=== PATIENT | male | born 1955 | race Two or more races ===

== ENCOUNTER → 2017-02-15 | Outpatient (CLI) | payer BC ==
--- NOTE | 2017-02-15 11:57 | RAD ---
Indication history of asthma. Cough. Shortness of breath. PA and lateral views of the chest were obtained. No prior imaging is available. The heart and pulmonary vessels appear normal. The mediastinum has a normal appearance. The lungs are clear. There is no pleural fluid or pneumothorax. Bony structures appear grossly intact. IMPRESSION: No acute or focal process is seen in the chest
== END | disposition home or self-care (01) ==
LOC: RAD 11:24
PROVIDERS: ATTEND Internal Medicine Cardiovascular Disease
DX: R06.00 Dyspnea, unspecified (principal); J45.909 Unspecified asthma, uncomplicated
CPT/HCPCS: 71020

== ENCOUNTER → 2017-02-24 | Outpatient (CLI) | payer BC ==
[~2017-02-24] MED LIST: FLUT12AE IH; PRED50TA PO; PROAIR HFA8.5 GM INH
--- NOTE | 2017-02-24 14:01 | RESP ---
DATE OF SERVICE: 02/24/2017 ATTENDING PHYSICIAN: Dr. Segal. The patient's FVC was 3.20 which is 70% of predicted. FEV1 was 1.91 which is 54% of predicted. The FEV1/FVC ratio was reduced. There was good response to bronchodilators. Lung volumes showed increased total lung capacity and increased residual volume. Diffusion capacity was normal. IMPRESSION: 1. Moderate obstructive airway disease. 2. Good response to bronchodilators. 3. Lung volumes consistent with hyperinflation and air trapping. 4. Normal diffusion capacity. LONG VARELA MD DR: HOSSEIN/gabe JOB#: [id number] / [id number] MELIDA Strickland MD
--- NOTE | 2017-02-24 14:18 | CARD ---
APPROVED REPORT EXAM: Two-dimensional and M-mode echocardiogram with Doppler and color Doppler. Other Information Quality : Average Rhythm : NSR INDICATION Dizziness and Vertigo 2D DIMENSIONS Left Atrium(2D)3.4 (1.6-4.0cm)IVSd1.1 (0.7-1.1cm) Aortic Root(2D)2.7 (2.0-3.7cm)LVDd3.9 (3.9-5.9cm) LVOT Diameter1.9 (1.8-2.4cm)PWd1.1 (0.7-1.1cm) LVDs2.2 (2.5-4.0cm)FS (%) 33.2 % SV50.0 mlLVEF(%)64.9 (>50%) Aortic Valve AoV Peak Royer.125.3cm/sAoV VTI24.4cm AO Peak GR.6.3mmHgLVOT Peak Royer.115.2cm/s LVOT VTI 19.77cmAO Mean GR.4mmHg GUY (VMAX)2.75fl6ZIT (VTI)2.41cm2 Mitral Valve MV E Bxphxahi61.3cm/sMV DECEL EKEB678up MV A Ncgrqhzi68.2cm/sMV PUU80cw E/A Ratio1.3MV A Vviiasws599vj MVA (PHT)3.30cm2 TDI E/Lateral E'5.6E/Medial E'7.1 Tricuspid Valve TR P. Lahaqbck271uv/sRAP BNSAFYAT8jpFd TR Peak Gr.02gsQmLJYT23inWp Pulmonary Vein S1 Jcbamxgd23.1cm/sD2 Rzllmxno87.2cm/s LEFT VENTRICLE The left ventricle is normal size. There is normal left ventricular wall thickness. Left ventricle sy stolic function is normal. The Ejection Fraction is 60-65%. There is normal LV segmental wall motion. The left ventricular diastolic function and filling is normal for age. There is no ventricular septa l defect visualized. RIGHT VENTRICLE The right ventricle is normal size. The right ventricular systolic function is normal. ATRIA The left atrium size is normal. The right atrium size is normal. The interatrial septum is intact wit h no evidence for an atrial septal defect or patent foramen ovale as noted on 2-D or Doppler imaging. AORTIC VALVE The aortic valve is not well visualized. Doppler and Color Flow revealed no significant aortic regurg itation. There is no significant aortic valvular stenosis. MITRAL VALVE The mitral valve is normal in structure and function. There is no mitral valve stenosis. Doppler and Color Flow revealed no mitral valve regurgitation noted. TRICUSPID VALVE The tricuspid valve is normal in structure and function. Doppler and Color Flow revealed trace tricus pid regurgitation. The PA pressure was estimated at 23 mmHg. There is no tricuspid valve stenosis. PULMONIC VALVE The pulmonic valve is not well visualized. Doppler and Color Flow revealed no pulmonic valvular regur gitation. GREAT VESSELS The aortic root is normal in size. Normal pulmonary venous flow (Doppler). The IVC is normal in size and collapses >50% with inspiration. PERICARDIAL EFFUSION There is no evidence of significant pericardial effusion. Critical Notification Critical Value: No <Conclusion> Left ventricle systolic function is normal. The Ejection Fraction is 60-65%. There is normal LV segmental wall motion.
== END | disposition home or self-care (01) ==
LOC: PF 07:40
PROVIDERS: ATTEND Internal Medicine Cardiovascular Disease
DX: R42 Dizziness and giddiness (principal)
CPT/HCPCS: 93306; 94060; 94729

== ENCOUNTER 2017-03-01 12:18 | Emergency (ER) | payer BC ==
[~2017-03-01] VITALS: Ht 175.3 cm; Wt 79.4 kg
[2017-03-01 12:35] VITALS: BP 134/88
--- NOTE | 2017-03-01 13:09 | PHYS DOC ---
Past Medical History Past Medical History: Asthma, Hypertension Alcohol Use: Occasionally Drug Use: None Adult General Chief Complaint Chief Complaint: SHORTNESS OF BREATH HPI HPI Patient is a 61 year old male who presents with his for evaluation of acute on chronic dyspnea. He states he has been short of breath intermittently for some time, but is worse in the past week. Has a dry cough that comes and goes. Symptoms are worse at night and during work. He also notes slight rhinorrhea. He states he is using pro-air and Flovent that were prescribed to him approximately 1 year ago, and he is also using DuoNeb nebulizer. States he has recently been seen by cardiology, Dr. Galdamez, who has ordered an echocardiogram and pulmonary function tests; of which he has to follow-up. 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 He denies chest pain, hemoptysis, leg pain or swelling , palpitations, diaphoresis, abdominal pain, fever or chills. Echocardiogram 02/24/17 <Conclusion> Left ventricle systolic function is normal. The Ejection Fraction is 60-65%. There is normal LV segmental wall motion. DICTATED and SIGNED BY: MELIDA GALDAMEZ MD DATE: 02/24/171417 Pulmonary function tests 02/24/17 IMPRESSION: 1. Moderate obstructive airway disease. 2. Good response to bronchodilators. 3. Lung volumes consistent with hyperinflation and air trapping. 4. Normal diffusion capacity. LONG VARELA MD DR: HOSSEIN/gabe JOB#: [id number] / [id number] Review of Systems Review of Systems Constitutional: Denies fever or chills [] Eyes: Denies change in visual acuity, redness, or eye pain [] HENT: Denies nasal congestion or sore throat [] Respiratory: Has cough and shortness of breath [] Cardiovascular: No additional information not addressed in HPI [] GI: Denies abdominal pain, nausea, vomiting, bloody stools or diarrhea [] : Denies dysuria or hematuria [] Musculoskeletal: Denies back pain or joint pain [] Integument: Denies rash or skin lesions [] Neurologic: Denies headache, focal weakness or sensory changes [] Endocrine: Denies polyuria or polydipsia [] Physical Exam Physical Exam Constitutional: Well developed, well nourished, no acute distress, non-toxic appearance. [] HENT: Normocephalic, atraumatic, bilateral external ears normal, oropharynx moist, nose normal. [] Eyes: PERRLA, EOMI. [] Neck: Normal range of motion, supple. [] Cardiovascular:Heart rate regular rhythm [] Lungs & Thorax: Minimal wheezing bilaterally, cough during exam, respirations even and unlabored [] Abdomen: Bowel sounds normal, soft, no tenderness. [] Skin: Warm, dry, no erythema, no rash. [] Back: Normal range of motion. [] Extremities: No tenderness, ROM intact, no edema. [] Neurologic: Alert and oriented X 3, normal motor function, normal sensory function, no focal deficits noted. [] Psychologic: Affect normal, judgement normal, mood normal. [] Current Patient Data Vital Signs Vital Signs Date Time Temp Pulse Resp B/P (MAP) Pulse Ox O2 Delivery O2 Flow Rate FiO2 03/01/17 12:35 98.9 92 22 134/88 (103) 97 Room Air 98.9 Course & Med Decision Making Course & Med Decision Making Discussed his testing shows evidence of reactive airway disease and encouraged him to continue bronchodilators. Will place on prednisone for likely acute exacerbation of reactive airway disease. Will give pulmonology referral. Return precautions given. He and understand plan. Dragon Disclaimer Dragon Disclaimer This electronic medical record was generated, in whole or in part, using a voice recognition dictation system. Departure Departure Impression: Primary Impression: Reactive airway disease Disposition: 01 HOME, SELF-CARE Condition: STABLE Referrals: LONG VARELA MD Patient Instructions: Asthma, Adult, [id number] Additional Instructions: Take prednisone as prescribed. Follow up with your primary care doctor and pulmonology clinic. Please call for appointment. Return for any concerns. Scripts Albuterol Sulfate (PROAIR HFA INHALER) 8.5 Gm Hfa.aer.ad 1 PUFF INH PRN Q4HRS Y for SHORTNESS OF BREATH, #1 INHALER 0 Refills Prov: Bandar MENDEZ MD 03/01/17 Fluticasone Propionate (FLOVENT 110MCG HFA) 12 Gm Aer.w.adap 2 PUFF IH BID, #1 INHALER 0 Refills Prov: Bandar MENDEZ MD 03/01/17 Prednisone (PREDNISONE) 50 Mg Tablet 1 TAB PO DAILY, #5 TAB Prov: Bandar MENDEZ MD 03/01/17 Problem Qualifiers Primary Impression: Reactive airway disease Asthma severity: unspecified severity Asthma complication type: with acute exacerbation Qualified Codes: J45.901 - Unspecified asthma with (acute) exacerbation Bandar MENDEZ MD March 01, 2017 13:09
[2017-03-01] MEDS ORDERED: FLUT12AE IH (13:13)
[2017-03-01] MEDS ORDERED: PROAIR HFA8.5 GM INH (13:13)
[2017-03-01] MEDS ORDERED: PRED50TA PO (13:13)
== END 2017-03-01 13:35 | disposition home or self-care (01) ==
LOC: ER 12:50
DX: J45.909 Unspecified asthma, uncomplicated (principal); I10 Essential (primary) hypertension
CPT/HCPCS: 99283

== ENCOUNTER 2018-08-24 21:16 | Emergency (ER) | payer OTHER ==
[~2018-08-24] VITALS: Ht 172.7 cm; Wt 81.6 kg
[~2018-08-24 21:16] MED LIST changes: +ATOR10TA60 PO; +LISI-338 PO
[2018-08-24] MEDS ORDERED: ALBUTEROL SULFATE 2.5 MG/3 ML NEBU. CONT NEB ONE (21:45)
[2018-08-24] MEDS ORDERED: IPRATROPIUM BROMIDE 0.5 MG/2.5 ML NEBU. NEB ONE (21:45)
[2018-08-24] MEDS ORDERED: methylPREDNISolone SOD SUCC PF 125 MG/2 ML VIAL. IV ONE (21:45)
[2018-08-24 21:54] LABS: BASO # 0.1 x10^3/uL (0.0-0.2); BASO % 1 % (0-3); EOS # 0.9 x10^3/uL (0.0-0.7); EOS % 13 % (0-3); HEMATOCRIT 45.7 % (39.0-53.0); HEMOGLOBIN 15.4 g/dL (13.0-17.5); LYMPH # 2.2 x10^3/uL (1.0-4.8); LYMPH % 30 % (24-48); MEAN CORPUSCULAR HEMOGLOBIN 31 pg (25-35); MEAN CORPUSCULAR HGB CONC 34 g/dL (31-37); MEAN CORPUSCULAR VOLUME 92 fL (79-100); MONO # 0.6 x10^3/uL (0.0-1.1); MONO % 8 % (0-9); NEUT # 3.5 x10^3uL (1.8-7.7); NEUT % 48 % (31-73); PLATELET COUNT 223 x10^3/uL (140-400); RED CELL DISTRIBUTION WIDTH 13.6 % (11.5-14.5); WHITE BLOOD COUNT 7.2 x10^3/uL (4.0-11.0)
[2018-08-24 22:01] LABS: CALCIUM 9.2 mg/dL (8.5-10.1); CREATININE 1.1 mg/dL (0.7-1.3); GFR 68.3; POTASSIUM 3.8 mmol/L (3.5-5.1)
--- NOTE | 2018-08-24 22:02 | RAD ---
EXAM: Chest, 2 views. HISTORY: Dyspnea. COMPARISON: 10/19/2017 FINDINGS: Frontal and lateral views of the chest are obtained. There is no infiltrate, pleural effusion or pneumothorax. The heart is normal in size. IMPRESSION: No acute pulmonary finding. Electronically signed by: Barbara Luque MD (08/24/2018 9:58 PM) [facility]
--- NOTE | 2018-08-24 22:04 | PHYS DOC ---
Past Medical History Past Medical History: Asthma, Hypertension, Other Additional Past Medical Histor: heart defect Past Surgical History: No Surgical History Alcohol Use: Heavy Drug Use: None Adult General Chief Complaint Chief Complaint: SHORTNESS OF BREATH HPI HPI Patient is a 62-year-old male who presents with complaint of shortness of breath and cough that is been going on for about 15 days. Patient states he was recently diagnosed with asthma and was prescribed a nebulizer. Patient states that he has been using nebulizer at home and he states that initially the nebulizer was helping with the shortness of breath but over the last few days, he states that the shortness of breath has been getting significantly worse and the nebulizers no longer helping. His indicates that he walks up 7 steps in the house and patient is visibly winded, having a difficult time catching his breath. Patient states that he has no orthopnea. He indicates that he does have some discomfort in his chest but states that that is just due to his coughing. He does indicate that his cough has been productive of a scant amount of white colored sputum. He denies any fever. He also denies any lower extremity pain or edema. It's that nothing currently is improving his symptoms. Review of Systems Review of Systems Constitutional: Denies fever or chills [] Respiratory: Complains of cough and shortness of breath[] Cardiovascular: Complains of chest soreness[] GI: Denies abdominal pain, nausea, vomiting, bloody stools or diarrhea [] Musculoskeletal: Denies back pain or joint pain [] All other systems were reviewed and found to be within normal limits, except as documented in this note. Current Medications Current Medications Current Medications Medications (Trade) Dose Ordered Sig/Marlen Start Time Stop Time Status Last Admin Dose Admin Albuterol Sulfate (Ventolin Neb Soln) 10 mg 1X ONCE 08/24/18 21:45 08/24/18 21:46 DC 08/24/18 21:53 10 MG Ipratropium Paden (Atrovent) 0.5 mg 1X ONCE 08/24/18 21:45 08/24/18 21:46 DC 08/24/18 21:53 0.5 MG Methylprednisolone Sodium Succinate (SOLU-Medrol 125MG VIAL) 125 mg 1X ONCE 08/24/18 21:45 08/24/18 21:46 DC 08/24/18 22:06 125 MG Allergies Allergies Allergies Coded Allergies Type Severity Reaction Last Updated Verified No Known Drug Allergies 10/19/17 No Physical Exam Physical Exam Constitutional: Well developed, well nourished, no acute distress, non-toxic appearance. [] HENT: Normocephalic, atraumatic, bilateral external ears normal, oropharynx moist, no oral exudates, nose normal. [] Eyes: PERRLA, EOMI, conjunctiva normal, no discharge. [] Neck: Normal range of motion, no tenderness, supple, no stridor. [] Cardiovascular:Heart rate regular rhythm [] Lungs & Thorax: Fairly good air movement is noted throughout bilaterally. There is a mild decrease in airway movement in the upper lobes bilaterally with both inspiratory and expiratory wheezes.[] Abdomen: Bowel sounds normal, soft, no tenderness, no masses, no pulsatile masses. [] Skin: Warm, dry, no erythema, no rash. [] Extremities: No tenderness, no cyanosis, no clubbing, ROM intact, no edema. [] Neurologic: Alert and oriented X 3, normal motor function, normal sensory function, no focal deficits noted. [] Current Patient Data Vital Signs Vital Signs Date Time Temp Pulse Resp B/P (MAP) Pulse Ox O2 Delivery O2 Flow Rate FiO2 08/24/18 23:30 84 18 151/88 (109) 99 08/24/18 21:57 Room Air 08/24/18 21:30 98.2 98.2 Lab Values Laboratory Tests Test 08/24/18 21:43 White Blood Count 7.2 x10^3/uL (4.0-11.0) Red Blood Count 5.00 x10^6/uL (4.30-5.70) Hemoglobin 15.4 g/dL (13.0-17.5) Hematocrit 45.7 % (39.0-53.0) Mean Corpuscular Volume 92 fL (79-100) Mean Corpuscular Hemoglobin 31 pg (25-35) Mean Corpuscular Hemoglobin Concent 34 g/dL (31-37) Red Cell Distribution Width 13.6 % (11.5-14.5) Platelet Count 223 x10^3/uL (140-400) Neutrophils (%) (Auto) 48 % (31-73) Lymphocytes (%) (Auto) 30 % (24-48) Monocytes (%) (Auto) 8 % (0-9) Eosinophils (%) (Auto) 13 % (0-3) H Basophils (%) (Auto) 1 % (0-3) Neutrophils # (Auto) 3.5 x10^3uL (1.8-7.7) Lymphocytes # (Auto) 2.2 x10^3/uL (1.0-4.8) Monocytes # (Auto) 0.6 x10^3/uL (0.0-1.1) Eosinophils # (Auto) 0.9 x10^3/uL (0.0-0.7) H Basophils # (Auto) 0.1 x10^3/uL (0.0-0.2) D-Dimer (Bonnie) < 0.27 ug/mlFEU Sodium Level 144 mmol/L (136-145) Potassium Level 3.8 mmol/L (3.5-5.1) Chloride Level 106 mmol/L (98-107) Carbon Dioxide Level 24 mmol/L (21-32) Anion Gap 14 (6-14) Blood Urea Nitrogen 16 mg/dL (8-26) Creatinine 1.1 mg/dL (0.7-1.3) Estimated GFR (Cockcroft-Gault) 68.3 BUN/Creatinine Ratio 15 (6-20) Glucose Level 110 mg/dL (70-99) H Calcium Level 9.2 mg/dL (8.5-10.1) Total Bilirubin 0.3 mg/dL (0.2-1.0) Aspartate Amino Transferase (AST) 27 U/L (15-37) Alanine Aminotransferase (ALT) 44 U/L (16-63) Alkaline Phosphatase 57 U/L (46-116) Troponin I Quantitative < 0.017 ng/mL (0.000-0.055) PL-Kpy-P-Type Natriuretic Peptide 27 pg/mL (0-124) Total Protein 6.7 g/dL (6.4-8.2) Albumin 3.9 g/dL (3.4-5.0) Albumin/Globulin Ratio 1.4 (1.0-1.7) Laboratory Tests 08/24/18 21:43 Laboratory Tests 08/24/18 21:43 EKG EKG [] Interpretation Time: EKG demonstrates sinus rhythm with rate of 86. There is right bundle-branch block. Radiology/Procedures Radiology/Procedures Chest x-ray obtained, no evidence of infiltrate, no effusion, no pneumothorax[] Course & Med Decision Making Course & Med Decision Making Pertinent Labs and Imaging studies reviewed. (See chart for details) At this time, patient's workup is pending and patient is being signed out to Dr. Espinal. Dr. Espinal note Received patient at 20/200. Agree with previous H&P. Patient is currently undergoing continuous nebulizer treatment. On exam he has some scattered expiratory wheezes. Labs were reviewed and note the negative d-dimer, negative cardiac enzymes, normal chest x-ray. 2345: Nebulizer treatment completed, patient feeling much better. Patient was able to ambulate about the emergency department at his normal pace. Minimal end expiratory wheezes noted. Medical decision making: No evidence of PE, no evidence of cardiac cause for the difficulty breathing, no evidence of CHF, no pneumonia, no pneumothorax. Lab and x-ray findings were discussed with the family. Plan was also discussed with family, they voiced understanding. All questions were answered. Dragon Disclaimer Dragon Disclaimer This electronic medical record was generated, in whole or in part, using a voice recognition dictation system. Departure Departure Impression: Primary Impression: Asthma exacerbation Disposition: 01 HOME, SELF-CARE Condition: GOOD Referrals: CHERELLE ANDRE MD (PCP) Follow-up in 2 days Patient Instructions: Asthma, Adult Additional Instructions: Follow-up with your regular doctor in 2 days. Take medication as prescribed. Return to the ER if worsening difficulty breathing, chest pain, or any other concerns. Scripts Prednisone (PREDNISONE) 20 Mg Tablet 20 MG PO DAILY, #20 TAB 3 tablets daily for 3 days Then 2 tablets daily for days 4 through 6 Then 1 tablet daily for days 6 through 9 Then one half tablet daily for days 10 TRHOUGH 13 Prov: XIMENA ESPINAL DO 08/24/18 Ipratropium Paden (IPRATROPIUM BROMIDE) 0.2 Mg/1 Ml Solution 1 VIAL NEB QID, #1 BOT 0 Refills One box of nebulizer prefilled solution Prov: XIMENA ESPINAL DO 08/24/18 CURT MANUEL Jr. DO Aug 24, 2018 22:04 XIMENA ESPINAL DO Aug 24, 2018 22:22
[2018-08-24 22:06] LABS: ALBUMIN 3.9 g/dL (3.4-5.0); ALBUMIN/GLOBULIN RATIO 1.4 (1.0-1.7); TOTAL BILIRUBIN 0.3 mg/dL (0.2-1.0); TOTAL PROTEIN 6.7 g/dL (6.4-8.2)
[2018-08-24 23:30] VITALS: BP 151/88
[2018-08-24] MEDS ORDERED: IPRA0.2S5 NEB (23:57)
[2018-08-24] MEDS ORDERED: PRED20TA PO (23:57)
--- NOTE | 2018-08-25 01:36 | EKG ---
[facility] [address] [place] [address] Test Date: 2018-08-24 Test Time: 21:40:47 Pat Name: BALJINDER SRINIVASAN Department: Room: Gender: M [employer] Former: : 1955 Requested By: CURT MANUEL Order Number: [id number] Reading MD: Measurements Intervals [place] Rate: 86 P: 7 AL: 108 QRS: 82 QRSD: 124 T: 25 QT: 386 QTc: 465 Interpretive Statements SINUS RHYTHM RIGHT BUNDLE BRANCH BLOCK ABNORMAL ECG RI6.01 No previous ECG available for comparison
== END 2018-08-25 00:10 | disposition home or self-care (01) ==
LOC: ER 21:16
DX: J45.901 Unspecified asthma with (acute) exacerbation (principal); I10 Essential (primary) hypertension
CPT/HCPCS: 36415; 71046; 80053; 83880; 84484; 85025; 85379; 87040; 93005; 94640; 96374; 99285; J2930; J7613; J7644; 94644

== ENCOUNTER → 2018-10-30 | Outpatient (CLI) | payer OTHER ==
[~2018-10-30] MED LIST changes: +ALBU2.5V8 INH; +IPRA0.2S5 NEB; +PRED20TA PO; -PROAIR HFA8.5 GM INH
== END | disposition home or self-care (01) ==
LOC: LAB 13:42
PROVIDERS: ATTEND Internal Medicine Allergy & Immunology
DX: J45.909 Unspecified asthma, uncomplicated (principal)
CPT/HCPCS: 36415; 82784